=== PATIENT | male | born 1975 | race Two or more races ===

== ENCOUNTER 2018-09-20 15:24 | Emergency (ER) | payer OTHER ==
[~2018-09-20] VITALS: Ht 170.2 cm; Wt 86.2 kg
[2018-09-20 15:30] VITALS: BP 134/85
--- NOTE | 2018-09-20 15:30 | NUR ---
ED Nurse Note: Pt AAO x4 present at ER due to Rt upper head laceration from last night. Per pt, pt had drink with his friends and fell due to alcohole not LOC. Laceration area has dryed and scant amount of bright blood. Pt c/o 8/10 pain on that area. VSS, calm and cooperative with initial assessment. at bedside.
--- NOTE | 2018-09-20 16:10 | Emergency Room Report ---
History of Present Illness General Chief Complaint: Head Injury Source: Patient Present Illness HPI 43-year-old male presents to the emergency department complaining of 8 out of 10 in severity tenderness, bleeding/open wound to the right side of his scalp since 11 PM last night. Patient reports that she was drinking alcohol and he slipped and hit his head. She states that he believes he may of lost consciousness for a little while after. Patient denies nausea, vomiting, weakness or difficulty with word recall her his memory. He denies taking blood thinning medications. He states he is up-to-date with vaccinations including tetanus. Patient denies other recent head injuries. Denies numbness tingling or loss of sensation or gross motor movements of the extremities, incontinence of bowel or bladder. Denies CP, Palpitations, LOC, AMS, dizziness, Changes in Vision, weakness or a sudden severe headache. Allergies: Coded Allergies: No Known Allergies (Unverified , 09/20/18) Patient History Past Medical History: see triage record Past Surgical History: none Pertinent Family History: none Immunizations: UTD Reviewed Nursing Documentation: PMH: Agreed; PSxH: Agreed Nursing Documentation-PMH Past Medical History: No Stated History Review of Systems All Other Systems: negative except mentioned in HPI Physical Exam Vital Signs Date Time Temp Pulse Resp B/P (MAP) Pulse Ox O2 Delivery O2 Flow Rate FiO2 09/20/18 15:30 98.2 71 16 134/85 98 Room Air Sp02 EP Interpretation: reviewed, normal General Appearance: no apparent distress, alert, GCS 15, non-toxic Head: normocephalic, other - scalp abrasion /superficial laceration 0.4cm in size. Eyes: bilateral eye normal inspection, bilateral eye PERRL ENT: hearing grossly normal, normal voice Neck: full range of motion Respiratory: lungs clear, normal breath sounds, speaking full sentences Cardiovascular #1: regular rate, rhythm Musculoskeletal: back normal, gait/station normal, normal range of motion, tender - right side of the scalp. Neurologic: alert, oriented x3, responsive, motor strength/tone normal, sensory intact, normal gait, speech normal, no pronator, other - no nystagmus, grossly normal Psychiatric: judgement/insight normal Skin: normal color, no rash, warm/dry, well hydrated, abrasions - and 0.4cm superficial laceration to the right side of the scalp, not currently bleeding. Procedures Laceration/Wound Repair Laceration/Wound Repair : Consent: Verbal Wound Location: head - right side of the scalp Wound's Depth, Shape: superficial Wound Length (cm): 0 Wound Explored: clean Irrigated w/ Saline (ccs): 500 Wound Repaired With: Dermabond Layer Closure?: No Sterile Dressing Applied?: No Splint Applied?: No Patient Tolerated: Well Complications: None Medical Decision Making PA Attestation Dr. mckeon is my supervising Physician whom patient management has been discussed with. Diagnostic Impression: Primary Impression: Scalp laceration Qualified Codes: S01.01XA - Laceration without foreign body of scalp, initial encounter Additional Impression: Mild concussion Qualified Codes: S06.0X0A - Concussion without loss of consciousness, initial encounter ER Course 43-year-old male presents to the emergency department complaining of 8 out of 10 in severity tenderness, bleeding/open wound to the right side of his scalp since 11 PM last night. Patient reports that she was drinking alcohol and he slipped and hit his head. She states that he believes he may of lost consciousness for a little while after. Patient denies nausea, vomiting, weakness or difficulty with word recall her his memory. He denies taking blood thinning medications. He states he is up-to-date with vaccinations including tetanus. Patient denies other recent head injuries. Denies numbness tingling or loss of sensation or gross motor movements of the extremities, incontinence of bowel or bladder. Denies CP, Palpitations, LOC, AMS, dizziness, Changes in Vision, weakness or a sudden severe headache. Ddx considered but are not limited to Fracture, dislocation, contusion, concussion Sprain/Strain/Spasm, hematoma Vital signs: are WNL, pt. is afebrile H&PE are most consistent with contusion, no evidence of focal neurological deficit, no loss of consciousness. ORDERS: none required at this time. PE and HPI do not indicate CT at this time. ED INTERVENTIONS: -Wound cleaning and derma allison was applied. -D/w Pt. reasoning for not doing Head CT, also discussed red flag symptoms to keep an eye out for that would indicate prompt return to the ED. - Pt. and responsible constitution party verbalize their understanding and agreement with proposed treatment plan. DISCHARGE: At this time pt. is stable for d/c to home. Will provide printed patient care instructions, and any necessary prescriptions. Care plan and follow up instructions have been discussed with the patient prior to discharge. Last Vital Signs Date Time Temp Pulse Resp B/P (MAP) Pulse Ox O2 Delivery O2 Flow Rate FiO2 09/20/18 15:48 99.0 88 15 135/89 97 Room Air Disposition: HOME, SELF-CARE Condition: Stable Scripts Acetaminophen* (TYLENOL EXTRA STRENGTH*) 500 Mg Tablet 500 MG ORAL Q6H, #30 TAB 0 Refills Prov: Divya Cook 09/20/18 Departure Forms: Return to Work Return to Work Date: Sep 23, 2018 Work Restrictions: None Other Restrictions: May return Sooner if Symptoms have resolved. Return to Full Activity: Sep 23, 2018 Patient Instructions: Head Injury, Adult, [id number] Additional Instructions: Take medications as directed. Follow up with a Primary Care Provider in 3-5 days, even if your symptoms have resolved. --Please review list of primary care clinics, if you do not already have a primary care provider Return sooner to ED if new symptoms occur, or current symptoms become worse. - Please note that this Emergency Department Report was dictated using [employer] secretary technology software, occasionally this can lead to erroneous entry secondary to interpretation by the dictation equipment. Divya Cook Sep 20, 2018 16:10
--- NOTE | 2018-09-20 16:31 | NUR ---
ED Nurse Note: contacted Pharmacy for dermabond. Waiting for pharmacy operations coordinator to come to refil the med.
[2018-09-20] MEDS ORDERED: TYLENOL EXTRA500 MG ORAL (16:35)
--- NOTE | 2018-09-20 16:35 | NUR ---
ED Nurse Note: dermabond given to MARTHA Baker
[2018-09-20 16:58] VITALS: BP 128/81
--- NOTE | 2018-09-20 17:00 | NUR ---
ED Nurse Note: Pt was cleared to be discharged by FLETCHER. Pt and his received discharge instruction and prescription and they both verbalized understanding. Pt stable with stable VS and ambulated to be discharged. ID band removed.
== END 2018-09-20 16:38 | disposition home or self-care (01) ==
LOC: EMR 15:56
DX: S01.01XA Laceration without foreign body of scalp, initial encounter (principal); S06.0X9A Concussion with loss of consciousness of unspecified duration, initial encounter; W01.0XXA Fall on same level from slipping, tripping and stumbling without subsequent striking against object, initial encounter; Y92.89 Other specified places as the place of occurrence of the external cause
CPT/HCPCS: 99283